=== PATIENT | female | born 1995 | race Caucasian/White ===

== ENCOUNTER → 2021-02-27 | Outpatient (CLI) | payer OTHER ==
[~2021-02-27] MED LIST: ADDERALL20 MG PO; ALBUTEROL0.09 MG/A2 INH; AMOXICILLIN500 MG PO; DEPO PROVER150 MG/ML IM; HYDROXYZINE PAM25 M1 PO; LAMICTAL25 MG PO; PREDNICOT20 MG PO; PROVENTIL0.09 MG/A1 INH; TAMIFLU75 MG PO; VISTARIL25 M2 PO; VYVANSE50 MG; VYVANSE70 MG PO; WELLBUTRIN SR150 MG PO
== END | disposition home or self-care (01) ==
LOC: LAB 15:44
PROVIDERS: ATTEND Nurse Practitioner Family
DX: M25.561 Pain in right knee (principal)

== ENCOUNTER 2021-07-30 16:50 | Emergency (ER) | payer BC ==
[2021-07-30 16:56] VITALS: BP 125/66
[2021-07-30] MEDS ORDERED: BUSPAR5 MG PO (17:08)
[2021-07-30 17:15] LABS: BASO % 0.2 % (0.0-1.0); EOS # 0.1 10*3/uL (0.0-0.4); EOS % 1.2 % (1.0-4.0); HEMATOCRIT 41.7 % (37.0-47.0); LYMPH # 1.9 10*3/uL (1.3-4.4); LYMPH % 19.2 % (27.0-41.0); MEAN CELL VOLUME 83.9 fl (81.0-99.0); MEAN CORPUSCULAR HGB 27.4 pg (27.0-31.0); MEAN CORPUSCULAR HGB CONC 32.6 g/dl (33.0-37.0); MONO # 0.5 10*3/uL (0.1-1.0); MONO % 4.9 % (3.0-9.0); NEUT # 7.4 10*3/uL (2.3-7.9); NEUT % 74.3 % (47.0-73.0); PLATELET COUNT AUTOMATED 290 10*3/uL (130-400); RED BLOOD COUNT 4.97 10*6/uL (4.10-5.10); RED CELL DISTRI WIDTH 12.9 % (0-14.5); WHITE BLOOD COUNT 9.9 10*3/uL (4.8-10.8)
[2021-07-30 17:22] LABS: BILIRUBIN Negative (Negative); BLOOD Negative (Negative); CLARITY Cloudy (Clear); COLOR Yellow (Yellow); GLUCOSE Negative (Negative); KETONE Trace (Negative); LEUKO ESTERASE 1+ (Negative); NITRITE Negative (Negative); PH 7.5 (4.5-8.0)
[2021-07-30 17:28] LABS: ACT PARTIAL THROMBO TIME 26.8 SECONDS (20.0-32.1); INTERNATIONAL NORM RATIO 0.9 (2.0-3.5)
[2021-07-30 17:31] LABS: BACTERIA 4+; EPITHELIAL CELLS TNTC
[2021-07-30 17:32] LABS: ALKALINE PHOSPHATASE 90 U/L (45-117); BUN 8 mg/dl (7-24); CHLORIDE 108 mmol/L (98-107); CREATININE 0.55 mg/dL (0.55-1.02); LIPASE 43 U/L (73-393); POTASSIUM 3.7 mmol/L (3.5-5.1); SGOT/AST 9 IU/L (3-35); SGPT/ALT 20 U/L (12-78); SODIUM 138 mmol/L (136-145)
[2021-07-30] MEDS ORDERED: CEPHALEXIN500 M1 PO (19:46)
== END 2021-07-30 20:09 | disposition home or self-care (01) ==
LOC: ED 16:50
PROVIDERS: Physician Assistant
DX: F41.9 Anxiety disorder, unspecified (principal)

== ENCOUNTER 2023-12-19 09:56 | Emergency (ER) | payer BC ==
[~2023-12-19] VITALS: Ht 162.5 cm; Wt 110.7 kg
[~2023-12-19 09:56] MED LIST changes: +BUSPAR5 MG PO; +CEPHALEXIN500 M1 PO
[2023-12-19 13:06] LABS: BASO % 0.5 % (0.0-1.0); EOS # 0.2 10*3/uL (0.0-0.4); EOS % 1.9 % (1.0-4.0); HEMATOCRIT 42.7 % (37.0-47.0); LYMPH # 2.1 10*3/uL (1.3-4.4); LYMPH % 25.4 % (27.0-41.0); MEAN CELL VOLUME 81.8 fl (81.0-99.0); MEAN CORPUSCULAR HGB 27.6 pg (27.0-31.0); MEAN CORPUSCULAR HGB CONC 33.7 g/dl (33.0-37.0); MEAN PLATELET VOLUME 9.1 fl (9.6-12.3); MONO # 0.5 10*3/uL (0.1-1.0); MONO % 5.8 % (3.0-9.0); NEUT # 5.4 10*3/uL (2.3-7.9); NEUT % 66.2 % (47.0-73.0); PLATELET COUNT AUTOMATED 235 10*3/uL (130-400); RED BLOOD COUNT 5.22 10*6/uL (4.10-5.10); RED CELL DISTRI WIDTH 13.7 % (0-14.5); WHITE BLOOD COUNT 8.2 10*3/uL (4.8-10.8)
[2023-12-19 13:25] LABS: BUN 9 mg/dl (9-23); CHLORIDE 107 mmol/L (98-107); POTASSIUM 3.8 mmol/L (3.4-5.1)
[2023-12-19] MEDS ORDERED: WARFARIN SODIUM 2 MG TAB PO ONE (13:40)
[2023-12-19] MEDS ORDERED: WARFARIN SOD2 MG PO (13:41)
[2023-12-19 14:03] VITALS: BP 120/74
== END 2023-12-19 13:56 | disposition home or self-care (01) ==
LOC: ED 09:56
PROVIDERS: Nurse Practitioner Family
DX: I82.412 Acute embolism and thrombosis of left femoral vein (principal); F41.9 Anxiety disorder, unspecified; F32.A Depression, unspecified; Z96.22 Myringotomy tube(s) status; Z87.891 Personal history of nicotine dependence; Z90.89 Acquired absence of other organs

== ENCOUNTER 2023-12-21 12:50 | Emergency (ER) | payer BC ==
[~2023-12-21] VITALS: Ht 162.5 cm; Wt 110.7 kg
[~2023-12-21 12:50] MED LIST changes: +WARFARIN SOD2 MG PO
[2023-12-21 13:13] VITALS: BP 112/66
[2023-12-21] MEDS ORDERED: IOHEXOL 350 MG/ML 100 ML VIAL IV ONE ×2 (13:30→13:44)
[2023-12-21] MEDS ORDERED: SODIUM CHLORIDE 0.9% 100 ML BAG IV ONE (13:30)
[2023-12-21 13:40] LABS: BASO # 0.1 10*3/uL (0.0-0.1); BASO % 0.7 % (0.0-1.0); EOS # 0.1 10*3/uL (0.0-0.4); HEMATOCRIT 46.7 % (37.0-47.0); LYMPH # 1.5 10*3/uL (1.3-4.4); LYMPH % 20.3 % (27.0-41.0); MEAN CELL VOLUME 81.6 fl (81.0-99.0); MEAN CORPUSCULAR HGB 26.9 pg (27.0-31.0); MONO # 0.4 10*3/uL (0.1-1.0); MONO % 5.8 % (3.0-9.0); NEUT # 5.2 10*3/uL (2.3-7.9); NEUT % 72.1 % (47.0-73.0); PLATELET COUNT AUTOMATED 255 10*3/uL (130-400); RED BLOOD COUNT 5.72 10*6/uL (4.10-5.10); RED CELL DISTRI WIDTH 13.3 % (0-14.5); WHITE BLOOD COUNT 7.2 10*3/uL (4.8-10.8)
[2023-12-21] MEDS ORDERED: SODIUM CHLORIDE 0.9% 100 ML IV ONE (13:44)
[2023-12-21 14:03] LABS: BUN 10 mg/dl (9-23); CHLORIDE 105 mmol/L (98-107); POTASSIUM 3.7 mmol/L (3.4-5.1)
== END 2023-12-21 15:44 | disposition home or self-care (01) ==
LOC: ED 12:50
PROVIDERS: Nurse Practitioner Family
DX: I82.402 Acute embolism and thrombosis of unspecified deep veins of left lower extremity (principal); R07.81 Pleurodynia; F90.9 Attention-deficit hyperactivity disorder, unspecified type; F32.A Depression, unspecified; F41.9 Anxiety disorder, unspecified; Z86.718 Personal history of other venous thrombosis and embolism; Z79.01 Long term (current) use of anticoagulants; Z96.22 Myringotomy tube(s) status; Z87.891 Personal history of nicotine dependence

== ENCOUNTER 2023-12-31 22:37 | Emergency (ER) | payer BC ==
[~2023-12-31] VITALS: Ht 162.5 cm; Wt 107.5 kg
[2023-12-31 22:43] VITALS: BP 130/80
[2023-12-31] MEDS ORDERED: Coumadin5 MG PO (22:44)
== END 2023-12-31 23:06 | disposition home or self-care (01) ==
LOC: ED 22:37
DX: F41.9 Anxiety disorder, unspecified (principal); Z86.718 Personal history of other venous thrombosis and embolism; Z79.01 Long term (current) use of anticoagulants; Z96.22 Myringotomy tube(s) status; Z87.891 Personal history of nicotine dependence

== ENCOUNTER 2024-09-01 12:51 | Emergency (ER) | payer BC ==
[~2024-09-01] VITALS: Ht 162.5 cm; Wt 100.7 kg
[~2024-09-01 12:51] MED LIST changes: +Coumadin5 MG PO
[2024-09-01 13:09] VITALS: BP 111/74
[2024-09-01] MEDS ORDERED: MAGNESIUM OXID500 MG PO (13:09)
[2024-09-01 13:47] LABS: BASO % 0.4 % (0.0-1.0); EOS # 0.1 10*3/uL (0.0-0.4); EOS % 1.5 % (1.0-4.0); HEMATOCRIT 41.5 % (37.0-47.0); MEAN CELL VOLUME 81.7 fl (81.0-99.0); MEAN PLATELET VOLUME 8.7 fl (9.6-12.3); MONO # 0.5 10*3/uL (0.1-1.0); NEUT # 4.5 10*3/uL (2.3-7.9); PLATELET COUNT AUTOMATED 226 10*3/uL (130-400); RED BLOOD COUNT 5.08 10*6/uL (4.10-5.10); RED CELL DISTRI WIDTH 13.2 % (0-14.5); WHITE BLOOD COUNT 6.9 10*3/uL (4.8-10.8)
[2024-09-01 14:00] LABS: ACT PARTIAL THROMBO TIME 27.2 SECONDS (20.0-32.1)
[2024-09-01 14:04] LABS: ALKALINE PHOSPHATASE 75 U/L (46-116); BUN 11 mg/dl (9-23); CHLORIDE 104 mmol/L (98-107); SGPT/ALT 12 U/L (5-49); TOTAL PROTEIN 6.9 gm/dL (6.0-8.0)
== END 2024-09-01 15:29 | disposition home or self-care (01) ==
LOC: ED 12:51
PROVIDERS: Internal Medicine
DX: F41.9 Anxiety disorder, unspecified (principal); Z79.899 Other long term (current) drug therapy; Z90.89 Acquired absence of other organs

== ENCOUNTER 2024-10-25 01:50 | Emergency (ER) | payer BC ==
[~2024-10-25] VITALS: Ht 162.5 cm; Wt 108.9 kg
[~2024-10-25 01:50] MED LIST changes: +MAGNESIUM OXID500 MG PO
[2024-10-25 01:57] VITALS: BP 118/59
== END 2024-10-25 02:35 | disposition home or self-care (01) ==
LOC: ED 01:50
DX: F41.9 Anxiety disorder, unspecified (principal); R68.84 Jaw pain; K21.9 Gastro-esophageal reflux disease without esophagitis; Z86.718 Personal history of other venous thrombosis and embolism

== ENCOUNTER 2025-05-02 18:21 | Emergency (ER) | payer BC ==
[~2025-05-02] VITALS: Ht 162.5 cm; Wt 108.0 kg
[2025-05-02 18:34] VITALS: BP 123/65
[2025-05-02] MEDS ORDERED: Bacitracin Zinc 14 GM TUBE T ONE (19:00)
[2025-05-02] MEDS ORDERED: CEPHALEXIN 500 MG CAP PO ONE (19:00)
[2025-05-02] MEDS ORDERED: CEPHALEXIN500 M1 PO (20:56)
== END 2025-05-02 21:00 | disposition home or self-care (01) ==
LOC: ED 18:21
DX: S61.214A Laceration without foreign body of right ring finger without damage to nail, initial encounter (principal); S61.215A Laceration without foreign body of left ring finger without damage to nail, initial encounter; F41.9 Anxiety disorder, unspecified; W25.XXXA Contact with sharp glass, initial encounter; Y93.89 Activity, other specified; Y92.89 Other specified places as the place of occurrence of the external cause; Y99.8 Other external cause status